=== PATIENT | male | born 1950 | race Caucasian/White ===

== ENCOUNTER 2021-04-24 22:46 | Inpatient (IN) ==
[2021-04-25 00:35] LABS: Bilirubin,Urine Negative (Negative); Blood,Urine Negative (Negative); Clarity,Urine Clear (Clear); Color,Urine Yellow (Yellow); Glucose,Urine (UA) Normal (Normal); Ketones,Urine Negative (Negative); Leukocyte Esterase,Urine Negative (Negative); Nitrite,Urine Negative (Negative); PH,Urine 7.5 pH Units (5.0-8.0); Protein,Urine Trace mg/dL (Neg-Trace); Specific Gravity,Urine 1.019 (1.010-1.025); Urobilinogen,Urine Normal (Normal)
[2021-04-25 00:36] LABS: Hematocrit 39.4 % (37.5-50.1); Hemoglobin 12.7 g/dL (12.9-16.9); Mean Corpuscular HGB Conc 32.2 g/dL (31.6-35.5); Mean Corpuscular Hemoglobin 28.8 pg (28.0-33.3); Mean Corpuscular Volume 89.3 fL (83.0-100.0); Mean Platelet Volume 10.8 fL (9.4-12.4); Platelet Count 126 K/mcL (140-400); Red Blood Count 4.41 M/mcL (4.19-5.50); Red Cell Distribution Width 15.9 % (11.5-14.5); White Blood Count 8.2 K/mcL (4.3-11.1)
[2021-04-25 00:45] LABS: INR 1.4; Prothrombin Time 15.9 Seconds (9.4-12.1)
[2021-04-25 00:48] LABS: Activated Partial Thrombo Time 27.1 Seconds (26.0-36.0)
[2021-04-25 00:57] LABS: Alanine Aminotransferase 21 Units/L (7-52); Albumin 3.1 g/dL (3.5-5.7); Albumin/Globulin Ratio 1.1 (1.1-2.2); Alkaline Phosphatase 362 Units/L (34-104); Aspartate Amino Transferase 65 Units/L (13-39); BUN/Creatinine Ratio 51 (6-26); Bilirubin,Direct 0.4 mg/dL (0.0-0.2); Bilirubin,Indirect 0.5 mg/dL (0.0-1.0); Bilirubin,Total 0.9 mg/dL (0.3-1.0); Blood Urea Nitrogen 22 mg/dL (8-23); Calcium 8.7 mg/dL (8.6-10.3); Carbon Dioxide 32 mEq/L (23-29); Chloride 105 mEq/L (98-107); Globulin 2.8 g/dL (2.4-3.5); Glucose 88 mg/dL (70-105); Osmolality,Calculated 303 (280-300); Potassium 3.8 mEq/L (3.5-5.1); Sodium 145 mEq/L (136-145); Total Protein 5.9 g/dL (6.4-8.9); eGFR For African Americans > 60 (> 60); eGFR For Non-African Americans > 60 (> 60)
[2021-04-25 00:58] LABS: Troponin I < 0.03 ng/mL (< 0.04)
[2021-04-25 01:07] LABS: Neutrophils # 4.6 K/mcL (1.6-8.9); Platelet Estimate Slight Decrease (Normal); Reactive Lymphocytes Present (Not Present)
[2021-04-25] MEDS ORDERED: Isovue-370 500 ML BOTTLE IVP ONE (01:12)
[2021-04-25] MEDS ORDERED: Piperacillin/Tazobactam 3.375 GM in 0.9 % Sodium Chloride Mini Bag 100 ML IVPB ONE (03:00)
[2021-04-25] MEDS ORDERED: Vancomycin 1,750 MG/517.5 ML IV.SOLN IVPB ONE (03:30)
[2021-04-25] MEDS ORDERED: Vancomycin (wt based) 1,000 MG VIAL IVPB SCH (04:00)
[2021-04-25 04:06] LABS: Adenovirus Not Detected (Not Detect); Coronavirus 229E Not Detected (Not Detect); Coronavirus HKU1 Not Detected (Not Detect); Coronavirus NL63 Not Detected (Not Detect); Coronavirus OC43 Not Detected (Not Detect); Human Metapneumovirus Not Detected (Not Detect); Human Rhinovirus/Enterovirus Not Detected (Not Detect); SARS-CoV-2 Not Detected (Not Detect)
[2021-04-25 04:07] LABS: Bordetella Pertussis Not Detected (Not Detect); Chlamydophila pneumoniae Not Detected (Not Detect); Influenza A Subtype 2009 H1 Not Detected (Not Detect); Influenza B Not Detected (Not Detect); Mycoplasma pneumoniae Not Detected (Not Detect); Parainfluenza Virus 1 Not Detected (Not Detect); Parainfluenza Virus 2 Not Detected (Not Detect); Parainfluenza Virus 3 Not Detected (Not Detect); Parainfluenza Virus 4 Not Detected (Not Detect); Respiratory Syncytial Virus Not Detected (Not Detect)
[2021-04-25] MEDS ORDERED: Naloxone 0.4 MG/ML INJ IVP PRN (04:50)
[2021-04-25] MEDS ORDERED: Ondansetron 4 MG/2 ML VIAL IVP PRN (04:50)
[2021-04-25 06:27] LABS: Thyroid Stimulating Hormone 3.906 mcIU/mL (0.340-5.600)
[2021-04-25 06:42] LABS: VBG HCO3 31 mEq/L (21-27); VBG PCO2 42 mmHg (41-51); VBG PH 7.47 pH Units (7.32-7.42); VBG PO2 185 mmHg (25-50)
[2021-04-25] MEDS ORDERED: Ipratropium/Albuterol Neb 3 ML IH PRN (07:54)
[2021-04-25] MEDS ORDERED: 0.9 % Sodium Chloride 500 ML IVC SCH (08:30)
[2021-04-25] MEDS: Piperacillin/Tazobactam 3.375 GM in 0.9 % Sodium Chloride Mini Bag 100 ML IVPB SCH ×2 (11:33→17:49)
[2021-04-25] MEDS ORDERED: *HR* Labetalol 20 MG/4 ML SYRINGE IVP PRN (15:14)
[2021-04-25] MEDS: *HR* Heparin 5,000 UNIT/ML VIAL SQ SCH (15:51)
[2021-04-25] MEDS: Lactulose Oral Soln 20 GM/30 ML UDC PO SCH ×2 (16:12→20:02)
[2021-04-25] MEDS: Vancomycin 1,500 MG/265 ML IV.SOLN IVPB SCH (17:49)
[2021-04-25] MEDS ORDERED: Thiamine (B-1) 100 MG in 0.9 % Sodium Chloride 50 ML IVPB STA (17:51)
[2021-04-25] MEDS ORDERED: traZODone 50 MG TABLET GTUBE SCH (18:00)
[2021-04-25] MEDS: amLODIPine 5 MG TABLET GTUBE SCH (18:50)
[2021-04-25] MEDS: Carbidopa/Levodopa 25/100 TABLET PO SCH (19:59)
[2021-04-25] MEDS: Famotidine 20 MG TABLET PO SCH (20:00)
[2021-04-25] MEDS: hydrALAZINE 25 MG TABLET PO SCH (20:01)
[2021-04-25] MEDS: traZODone 50 MG TABLET GTUBE SCH (20:01)
[2021-04-26] MEDS: Piperacillin/Tazobactam 3.375 GM in 0.9 % Sodium Chloride Mini Bag 100 ML IVPB SCH ×3 (02:12→19:55)
[2021-04-26] MEDS: Vancomycin 1,500 MG/265 ML IV.SOLN IVPB SCH (03:45)
[2021-04-26 04:33] LABS: Basophils # 0.1 K/mcL (0.0-0.2); Basophils % 0.8 %; Eosinophils # 0.1 K/mcL (0.0-0.6); Eosinophils % 1.3 %; Hemoglobin 12.1 g/dL (12.9-16.9); Immature Granulocytes % 6.2 % (0-4); Lymphocytes # 1.7 K/mcL (0.6-4.6); Lymphocytes % 19.7 %; Mean Corpuscular HGB Conc 32.7 g/dL (31.6-35.5); Mean Corpuscular Hemoglobin 29.3 pg (28.0-33.3); Mean Corpuscular Volume 89.6 fL (83.0-100.0); Mean Platelet Volume 10.5 fL (9.4-12.4); Monocytes # 0.9 K/mcL (0.0-1.3); Monocytes % 10.6 %; Neutrophils # 5.3 K/mcL (1.6-8.9); Platelet Count 136 K/mcL (140-400); Red Blood Count 4.13 M/mcL (4.19-5.50); Red Cell Distribution Width 15.8 % (11.5-14.5); Segmented Neutrophils % 61.4 %; White Blood Count 8.7 K/mcL (4.3-11.1)
[2021-04-26 04:39] LABS: INR 1.5; Prothrombin Time 16.8 Seconds (9.4-12.1)
[2021-04-26 04:51] LABS: Alanine Aminotransferase 31 Units/L (7-52); Albumin 2.9 g/dL (3.5-5.7); Albumin/Globulin Ratio 1.1 (1.1-2.2); Alkaline Phosphatase 310 Units/L (34-104); Aspartate Amino Transferase 43 Units/L (13-39); BUN/Creatinine Ratio 42 (6-26); Bilirubin,Direct 0.3 mg/dL (0.0-0.2); Bilirubin,Indirect 0.6 mg/dL (0.0-1.0); Bilirubin,Total 0.9 mg/dL (0.3-1.0); Blood Urea Nitrogen 18 mg/dL (8-23); Calcium 8.6 mg/dL (8.6-10.3); Carbon Dioxide 29 mEq/L (23-29); Chloride 105 mEq/L (98-107); Globulin 2.7 g/dL (2.4-3.5); Glucose 72 mg/dL (70-105); Magnesium 1.8 mg/dL (1.6-2.6); Osmolality,Calculated 292 (280-300); Potassium 3.7 mEq/L (3.5-5.1); Sodium 141 mEq/L (136-145); Total Protein 5.6 g/dL (6.4-8.9); eGFR For African Americans > 60 (> 60); eGFR For Non-African Americans > 60 (> 60)
[2021-04-26 05:01] LABS: Anisocytosis 1+ (Not Present); Platelet Estimate Slight Decrease (Normal)
[2021-04-26] MEDS: *HR* Heparin 5,000 UNIT/ML VIAL SQ SCH ×2 (05:39→16:13)
[2021-04-26] MEDS: lisinopriL 20 MG TABLET PO SCH (07:57)
[2021-04-26] MEDS: allopurinoL 300 MG TABLET PO SCH (07:58)
[2021-04-26] MEDS: hydrALAZINE 25 MG TABLET PO SCH ×3 (07:58→19:57)
[2021-04-26] MEDS: Carbidopa/Levodopa 25/100 TABLET PO SCH ×4 (07:58→19:57)
[2021-04-26] MEDS: amLODIPine 5 MG TABLET GTUBE SCH (07:59)
[2021-04-26] MEDS: Famotidine 20 MG TABLET PO SCH ×2 (07:59→19:58)
[2021-04-26] MEDS: Lactulose Oral Soln 20 GM/30 ML UDC PO SCH ×2 (08:00→19:55)
[2021-04-26] MEDS: Docusate Oral Soln 100 MG/10 ML UDC GTUBE SCH (09:42)
[2021-04-26] MEDS: Thiamine (B-1) 100 MG in 0.9 % Sodium Chloride 50 ML IVPB SCH (10:18)
[2021-04-26] MEDS ORDERED: MOM Conc 10 ML UD.LIQ PO PRN (18:15)
[2021-04-26] MEDS: Valproic Acid Oral Soln 250 MG/5 ML UDC GTUBE SCH (19:54)
[2021-04-26] MEDS: traZODone 50 MG TABLET GTUBE SCH (19:55)
[2021-04-27 01:58] LABS: Basophils # 0.1 K/mcL (0.0-0.2); Basophils % 0.5 %; Eosinophils # 0.2 K/mcL (0.0-0.6); Eosinophils % 1.5 %; Hematocrit 35.8 % (37.5-50.1); Hemoglobin 11.8 g/dL (12.9-16.9); Immature Granulocytes % 4.8 % (0-4); Lymphocytes # 2.4 K/mcL (0.6-4.6); Lymphocytes % 19.2 %; Mean Platelet Volume 9.9 fL (9.4-12.4); Monocytes % 7.7 %; Neutrophils # 8.4 K/mcL (1.6-8.9); Platelet Count 176 K/mcL (140-400); Red Blood Count 4.07 M/mcL (4.19-5.50); Red Cell Distribution Width 15.7 % (11.5-14.5); Segmented Neutrophils % 66.3 %; White Blood Count 12.7 K/mcL (4.3-11.1)
[2021-04-27] MEDS: Piperacillin/Tazobactam 3.375 GM in 0.9 % Sodium Chloride Mini Bag 100 ML IVPB SCH ×3 (02:04→19:45)
[2021-04-27 04:46] LABS: C.difficile Toxin A/B Gene PCR Not detected (Not detect); Campylobacter by PCR Not detected (Not detect); Plesiomonas shigelloides PCR Not detected (Not detect); Salmonella PCR Not detected (Not detect); Vibrio PCR Not detected (Not detect)
[2021-04-27 04:47] LABS: Adenovirus F 40/41 PCR Not detected (Not detect); Astrovirus PCR Not detected (Not detect); Cryptosporidium by PCR Not detected (Not detect); Cyclospora cayetanensis PCR Not detected (Not detect); E. coli O157 by PCR Not detected (Not detect); Entamoeba histolytica PCR Not detected (Not detect); Enteroaggregative E.coli(EAEC) Not detected (Not detect); Enteropathogenic E.coli(EPEC) Not detected (Not detect); Enterotoxigenic E.coli (ETEC) Not detected (Not detect); Giardia lamblia PCR Not detected (Not detect); Norovirus GI/GII PCR Not detected (Not detect); Rotavirus A PCR Not detected (Not detect); Sapovirus PCR Not detected (Not detect); Shig/EnteroinvasiveE coli EIEC Not detected (Not detect); Shigalike tox-prod E coli STEC Not detected (Not detect); Vibrio cholerae PCR Not detected (Not detect); Yersinia enterocolitica PCR Not detected (Not detect)
[2021-04-27] MEDS: *HR* Heparin 5,000 UNIT/ML VIAL SQ SCH ×2 (04:54→17:50)
[2021-04-27 06:45] LABS: BUN/Creatinine Ratio 36 (6-26); Blood Urea Nitrogen 18 mg/dL (8-23); Calcium 8.4 mg/dL (8.6-10.3); Carbon Dioxide 27 mEq/L (23-29); Chloride 107 mEq/L (98-107); Glucose 91 mg/dL (70-105); Osmolality,Calculated 279 (280-300); Potassium 3.6 mEq/L (3.5-5.1); Sodium 134 mEq/L (136-145); eGFR For African Americans > 60 (> 60); eGFR For Non-African Americans > 60 (> 60)
[2021-04-27] MEDS: Docusate Oral Soln 100 MG/10 ML UDC GTUBE SCH (08:13)
[2021-04-27] MEDS: Valproic Acid Oral Soln 250 MG/5 ML UDC GTUBE SCH ×2 (08:13→19:59)
[2021-04-27] MEDS: Lactulose Oral Soln 20 GM/30 ML UDC PO SCH ×2 (08:13→19:47)
[2021-04-27] MEDS: allopurinoL 300 MG TABLET PO SCH (08:14)
[2021-04-27] MEDS: amLODIPine 5 MG TABLET GTUBE SCH (08:14)
[2021-04-27] MEDS: Carbidopa/Levodopa 25/100 TABLET PO SCH ×3 (08:14→17:50)
[2021-04-27] MEDS: hydrALAZINE 25 MG TABLET PO SCH ×3 (08:14→19:46)
[2021-04-27] MEDS: lisinopriL 20 MG TABLET PO SCH (08:14)
[2021-04-27] MEDS: Famotidine 20 MG TABLET PO SCH (08:15)
[2021-04-27] MEDS: Thiamine (B-1) 100 MG in 0.9 % Sodium Chloride 50 ML IVPB SCH (10:13)
[2021-04-27] MEDS: Vancomycin 1,500 MG/265 ML IV.SOLN IVPB SCH (14:03)
[2021-04-27] MEDS: Carbidopa/Levodopa 25/100 TABLET GTUBE SCH (19:46)
[2021-04-27] MEDS: Famotidine 20 MG TABLET GTUBE SCH (19:46)
[2021-04-27] MEDS: traZODone 50 MG TABLET GTUBE SCH (19:47)
[2021-04-27] MEDS: Amantadine Oral Soln 50 MG/5 ML UDC GTUBE SCH (20:56)
[2021-04-27] MEDS: Lactulose Oral Soln 20 GM/30 ML UDC GTUBE SCH (20:56)
[2021-04-27] MEDS: hydrALAZINE 25 MG TABLET GTUBE SCH (20:56)
[2021-04-27] MEDS ORDERED: MOM Conc 10 ML UD.LIQ GTUBE PRN (21:00)
[2021-04-28] MEDS: Vancomycin 1,500 MG/265 ML IV.SOLN IVPB SCH ×2 (01:19→14:15)
[2021-04-28] MEDS: Piperacillin/Tazobactam 3.375 GM in 0.9 % Sodium Chloride Mini Bag 100 ML IVPB SCH ×3 (03:01→18:16)
[2021-04-28] MEDS: *HR* Heparin 5,000 UNIT/ML VIAL SQ SCH ×2 (05:17→18:14)
[2021-04-28 06:41] LABS: Basophils % 0.2 %; Eosinophils # 0.2 K/mcL (0.0-0.6); Eosinophils % 1.5 %; Hematocrit 32.5 % (37.5-50.1); Hemoglobin 11.1 g/dL (12.9-16.9); Lymphocytes # 2.3 K/mcL (0.6-4.6); Lymphocytes % 18.5 %; Mean Corpuscular HGB Conc 34.2 g/dL (31.6-35.5); Mean Corpuscular Hemoglobin 29.9 pg (28.0-33.3); Mean Corpuscular Volume 87.6 fL (83.0-100.0); Mean Platelet Volume 9.6 fL (9.4-12.4); Monocytes # 0.9 K/mcL (0.0-1.3); Monocytes % 6.8 %; Neutrophils # 8.8 K/mcL (1.6-8.9); Platelet Count 157 K/mcL (140-400); Red Blood Count 3.71 M/mcL (4.19-5.50); Red Cell Distribution Width 15.7 % (11.5-14.5); White Blood Count 12.4 K/mcL (4.3-11.1)
[2021-04-28 07:01] LABS: Alanine Aminotransferase 26 Units/L (7-52); Albumin 2.8 g/dL (3.5-5.7); Albumin/Globulin Ratio 1.1 (1.1-2.2); Alkaline Phosphatase 275 Units/L (34-104); Aspartate Amino Transferase 25 Units/L (13-39); BUN/Creatinine Ratio 27 (6-26); Bilirubin,Direct 0.2 mg/dL (0.0-0.2); Bilirubin,Indirect 0.4 mg/dL (0.0-1.0); Bilirubin,Total 0.6 mg/dL (0.3-1.0); Blood Urea Nitrogen 14 mg/dL (8-23); Calcium 8.1 mg/dL (8.6-10.3); Carbon Dioxide 29 mEq/L (23-29); Chloride 102 mEq/L (98-107); Globulin 2.5 g/dL (2.4-3.5); Glucose 84 mg/dL (70-105); Osmolality,Calculated 282 (280-300); Potassium 3.7 mEq/L (3.5-5.1); Sodium 136 mEq/L (136-145); Total Protein 5.3 g/dL (6.4-8.9); eGFR For African Americans > 60 (> 60); eGFR For Non-African Americans > 60 (> 60)
[2021-04-28 08:40] LABS: Acinetobacter baumannii by PCR Not Detected (Not Detect); Candida albicans by PCR Not Detected (Not Detect); Candida glabrata by PCR Not Detected (Not Detect); Candida krusei by PCR Not Detected (Not Detect); Candida parapsilosis by PCR Not Detected (Not Detect); Candida tropicalis by PCR Not Detected (Not Detect); Enterobacter cloacae Cmplx PCR Not Detected (Not Detect); Enterobacteriaceae by PCR Not Detected (Not Detect); Enterococcus by PCR Not Detected (Not Detect); Escherichia coli by PCR Not Detected (Not Detect); Klebsiella oxytoca by PCR Not Detected (Not Detect); Klebsiella pneumoniae by PCR Not Detected (Not Detect); Proteus by PCR Not Detected (Not Detect); Pseudomonas aeruginosa by PCR Not Detected (Not Detect); Serratia marcescens by PCR Not Detected (Not Detect); Staphylococcus aureus by PCR Not Detected (Not Detect); Staphylococcus by PCR DETECTED (Not Detect); Streptococcus agalactiae(B)PCR Not Detected (Not Detect); Streptococcus by PCR Not Detected (Not Detect); Streptococcus pneumoniae PCR Not Detected (Not Detect); Streptococcus pyogenes (A) PCR Not Detected (Not Detect); mecA Methicillin-Resist Gene DETECTED (Not Detect)
[2021-04-28] MEDS: Amantadine Oral Soln 50 MG/5 ML UDC GTUBE SCH ×2 (09:52→20:17)
[2021-04-28] MEDS: Valproic Acid Oral Soln 250 MG/5 ML UDC GTUBE SCH ×2 (09:52→20:14)
[2021-04-28] MEDS: Docusate Oral Soln 100 MG/10 ML UDC GTUBE SCH (09:52)
[2021-04-28] MEDS: lisinopriL 20 MG TABLET GTUBE SCH (09:53)
[2021-04-28] MEDS: amLODIPine 5 MG TABLET GTUBE SCH (09:53)
[2021-04-28] MEDS: Famotidine 20 MG TABLET GTUBE SCH ×2 (09:53→20:19)
[2021-04-28] MEDS: Carbidopa/Levodopa 25/100 TABLET GTUBE SCH ×4 (09:53→20:18)
[2021-04-28] MEDS: hydrALAZINE 25 MG TABLET GTUBE SCH ×3 (09:54→20:18)
[2021-04-28] MEDS: allopurinoL 300 MG TABLET GTUBE SCH (09:55)
[2021-04-28] MEDS: Lactulose Oral Soln 20 GM/30 ML UDC GTUBE SCH ×2 (09:56→20:14)
[2021-04-28] MEDS ORDERED: E-Z-HD (BARIUM SULF) SUSPENSION PO ONE (11:28)
[2021-04-28] MEDS ORDERED: E-Z-PAQUE (BARIUM SULF) SUSP 1 BOTTLE PO ONE (11:28)
[2021-04-28] MEDS: Thiamine (B-1) 100 MG in 0.9 % Sodium Chloride 50 ML IVPB SCH (13:22)
[2021-04-28] MEDS: traZODone 50 MG TABLET GTUBE SCH (20:18)
[2021-04-29] MEDS: Vancomycin 1,500 MG/265 ML IV.SOLN IVPB SCH ×2 (01:03→14:13)
[2021-04-29] MEDS: Piperacillin/Tazobactam 3.375 GM in 0.9 % Sodium Chloride Mini Bag 100 ML IVPB SCH ×3 (02:46→19:06)
[2021-04-29] MEDS: *HR* Heparin 5,000 UNIT/ML VIAL SQ SCH ×2 (04:50→18:07)
[2021-04-29 06:42] LABS: Basophils % 0.1 %; Eosinophils # 0.2 K/mcL (0.0-0.6); Eosinophils % 0.9 %; Hematocrit 32.7 % (37.5-50.1); Hemoglobin 11.2 g/dL (12.9-16.9); Immature Granulocytes % 1.1 % (0-4); Lymphocytes # 1.8 K/mcL (0.6-4.6); Lymphocytes % 10.9 %; Mean Corpuscular HGB Conc 34.3 g/dL (31.6-35.5); Mean Corpuscular Hemoglobin 30.1 pg (28.0-33.3); Mean Corpuscular Volume 87.9 fL (83.0-100.0); Mean Platelet Volume 10.3 fL (9.4-12.4); Monocytes % 5.7 %; Neutrophils # 13.7 K/mcL (1.6-8.9); Platelet Count 174 K/mcL (140-400); Red Blood Count 3.72 M/mcL (4.19-5.50); Red Cell Distribution Width 15.9 % (11.5-14.5); Segmented Neutrophils % 81.3 %; White Blood Count 16.8 K/mcL (4.3-11.1)
[2021-04-29 07:01] LABS: Alanine Aminotransferase 22 Units/L (7-52); Albumin 2.8 g/dL (3.5-5.7); Alkaline Phosphatase 251 Units/L (34-104); Aspartate Amino Transferase 21 Units/L (13-39); BUN/Creatinine Ratio 22 (6-26); Bilirubin,Total 0.6 mg/dL (0.3-1.0); Blood Urea Nitrogen 13 mg/dL (8-23); Calcium 8.2 mg/dL (8.6-10.3); Carbon Dioxide 27 mEq/L (23-29); Chloride 103 mEq/L (98-107); Globulin 2.7 g/dL (2.4-3.5); Glucose 85 mg/dL (70-105); Osmolality,Calculated 281 (280-300); Potassium 3.6 mEq/L (3.5-5.1); Sodium 136 mEq/L (136-145); Total Protein 5.5 g/dL (6.4-8.9); eGFR For African Americans > 60 (> 60); eGFR For Non-African Americans > 60 (> 60)
[2021-04-29] MEDS: Valproic Acid Oral Soln 250 MG/5 ML UDC GTUBE SCH ×2 (09:31→21:37)
[2021-04-29] MEDS: Docusate Oral Soln 100 MG/10 ML UDC GTUBE SCH (09:31)
[2021-04-29] MEDS: lisinopriL 20 MG TABLET GTUBE SCH (09:32)
[2021-04-29] MEDS: hydrALAZINE 25 MG TABLET GTUBE SCH ×3 (09:32→21:38)
[2021-04-29] MEDS: Famotidine 20 MG TABLET GTUBE SCH ×2 (09:33→21:37)
[2021-04-29] MEDS: Carbidopa/Levodopa 25/100 TABLET GTUBE SCH ×4 (09:33→21:38)
[2021-04-29] MEDS: allopurinoL 300 MG TABLET GTUBE SCH (09:34)
[2021-04-29] MEDS: amLODIPine 5 MG TABLET GTUBE SCH (09:34)
[2021-04-29] MEDS: Amantadine Oral Soln 50 MG/5 ML UDC GTUBE SCH ×2 (09:34→21:36)
[2021-04-29] MEDS ORDERED: Furosemide 40 MG/4 ML VIAL IVP ONE (09:38)
[2021-04-29] MEDS: Lactulose Oral Soln 20 GM/30 ML UDC GTUBE SCH ×2 (09:59→21:36)
[2021-04-29] MEDS: Thiamine (B-1) 100 MG in 0.9 % Sodium Chloride 50 ML IVPB SCH (10:10)
[2021-04-29] MEDS: traZODone 50 MG TABLET GTUBE SCH (21:38)
[2021-04-30] MEDS: Vancomycin 1,500 MG/265 ML IV.SOLN IVPB SCH (01:07)
[2021-04-30] MEDS: Piperacillin/Tazobactam 3.375 GM in 0.9 % Sodium Chloride Mini Bag 100 ML IVPB SCH ×3 (03:29→18:14)
[2021-04-30] MEDS: *HR* Heparin 5,000 UNIT/ML VIAL SQ SCH ×2 (04:46→18:16)
[2021-04-30 05:34] LABS: Basophils % 0.2 %; Eosinophils # 0.2 K/mcL (0.0-0.6); Eosinophils % 1.7 %; Hematocrit 31.7 % (37.5-50.1); Hemoglobin 10.9 g/dL (12.9-16.9); Immature Granulocytes % 0.7 % (0-4); Lymphocytes # 1.9 K/mcL (0.6-4.6); Lymphocytes % 16.9 %; Mean Corpuscular HGB Conc 34.4 g/dL (31.6-35.5); Mean Corpuscular Hemoglobin 29.9 pg (28.0-33.3); Mean Corpuscular Volume 87.1 fL (83.0-100.0); Mean Platelet Volume 10.9 fL (9.4-12.4); Monocytes # 0.9 K/mcL (0.0-1.3); Monocytes % 7.9 %; Neutrophils # 8.3 K/mcL (1.6-8.9); Platelet Count 170 K/mcL (140-400); Red Blood Count 3.64 M/mcL (4.19-5.50); Red Cell Distribution Width 16.1 % (11.5-14.5); Segmented Neutrophils % 72.6 %; White Blood Count 11.4 K/mcL (4.3-11.1)
[2021-04-30 05:48] LABS: BUN/Creatinine Ratio 16 (6-26); Blood Urea Nitrogen 14 mg/dL (8-23); Calcium 8.2 mg/dL (8.6-10.3); Carbon Dioxide 27 mEq/L (23-29); Chloride 103 mEq/L (98-107); Glucose 77 mg/dL (70-105); Magnesium 1.8 mg/dL (1.6-2.6); Osmolality,Calculated 287 (280-300); Phosphorous 3.7 mg/dL (2.7-4.5); Potassium 3.6 mEq/L (3.5-5.1); Sodium 139 mEq/L (136-145); eGFR For African Americans > 60 (> 60); eGFR For Non-African Americans > 60 (> 60)
[2021-04-30] MEDS: Amantadine Oral Soln 50 MG/5 ML UDC GTUBE SCH ×2 (08:45→20:47)
[2021-04-30] MEDS: hydrALAZINE 25 MG TABLET GTUBE SCH ×3 (08:45→20:48)
[2021-04-30] MEDS: allopurinoL 300 MG TABLET GTUBE SCH (08:45)
[2021-04-30] MEDS: amLODIPine 5 MG TABLET GTUBE SCH (08:45)
[2021-04-30] MEDS: Carbidopa/Levodopa 25/100 TABLET GTUBE SCH ×4 (08:46→20:49)
[2021-04-30] MEDS: lisinopriL 20 MG TABLET GTUBE SCH (08:46)
[2021-04-30] MEDS: Famotidine 20 MG TABLET GTUBE SCH ×2 (08:47→20:48)
[2021-04-30] MEDS: Lactulose Oral Soln 20 GM/30 ML UDC GTUBE SCH ×2 (08:48→20:47)
[2021-04-30] MEDS: Docusate Oral Soln 100 MG/10 ML UDC GTUBE SCH (08:49)
[2021-04-30] MEDS: Valproic Acid Oral Soln 250 MG/5 ML UDC GTUBE SCH ×2 (08:49→20:47)
[2021-04-30] MEDS: Thiamine (B-1) 100 MG in 0.9 % Sodium Chloride 50 ML IVPB SCH (12:22)
[2021-04-30] MEDS ORDERED: Furosemide 40 MG/4 ML VIAL IVP ONE ×2 (12:57→15:56)
[2021-04-30] MEDS: traZODone 50 MG TABLET GTUBE SCH (20:48)
[2021-05-01 03:17] LABS: Basophils % 0.2 %; Eosinophils # 0.2 K/mcL (0.0-0.6); Hematocrit 31.6 % (37.5-50.1); Hemoglobin 10.8 g/dL (12.9-16.9); Immature Granulocytes % 0.7 % (0-4); Lymphocytes # 1.7 K/mcL (0.6-4.6); Lymphocytes % 17.4 %; Mean Corpuscular HGB Conc 34.2 g/dL (31.6-35.5); Mean Corpuscular Hemoglobin 30.2 pg (28.0-33.3); Mean Corpuscular Volume 88.3 fL (83.0-100.0); Monocytes # 0.8 K/mcL (0.0-1.3); Monocytes % 8.3 %; Platelet Count 189 K/mcL (140-400); Red Blood Count 3.58 M/mcL (4.19-5.50); Red Cell Distribution Width 16.2 % (11.5-14.5); Segmented Neutrophils % 71.4 %; White Blood Count 9.9 K/mcL (4.3-11.1)
[2021-05-01 03:36] LABS: BUN/Creatinine Ratio 13 (6-26); Blood Urea Nitrogen 14 mg/dL (8-23); Calcium 8.3 mg/dL (8.6-10.3); Carbon Dioxide 29 mEq/L (23-29); Chloride 104 mEq/L (98-107); Glucose 119 mg/dL (70-105); Osmolality,Calculated 292 (280-300); Potassium 3.6 mEq/L (3.5-5.1); Sodium 140 mEq/L (136-145); eGFR For African Americans > 60 (> 60); eGFR For Non-African Americans > 60 (> 60)
[2021-05-01] MEDS: *HR* Heparin 5,000 UNIT/ML VIAL SQ SCH ×2 (05:16→16:58)
[2021-05-01] MEDS: Carbidopa/Levodopa 25/100 TABLET GTUBE SCH ×4 (09:22→21:30)
[2021-05-01] MEDS: Docusate Oral Soln 100 MG/10 ML UDC GTUBE SCH (09:22)
[2021-05-01] MEDS: amLODIPine 5 MG TABLET GTUBE SCH (09:22)
[2021-05-01] MEDS: Amantadine Oral Soln 50 MG/5 ML UDC GTUBE SCH ×2 (09:22→21:32)
[2021-05-01] MEDS: hydrALAZINE 25 MG TABLET GTUBE SCH ×3 (09:23→21:31)
[2021-05-01] MEDS: lisinopriL 20 MG TABLET GTUBE SCH (09:23)
[2021-05-01] MEDS: Piperacillin/Tazobactam 3.375 GM in 0.9 % Sodium Chloride Mini Bag 100 ML IVPB SCH ×2 (09:27→12:30)
[2021-05-01] MEDS: Valproic Acid Oral Soln 250 MG/5 ML UDC GTUBE SCH ×2 (09:28→21:28)
[2021-05-01] MEDS: Famotidine 20 MG TABLET GTUBE SCH ×2 (09:32→21:37)
[2021-05-01] MEDS: Lactulose Oral Soln 20 GM/30 ML UDC GTUBE SCH ×2 (09:32→21:31)
[2021-05-01] MEDS: allopurinoL 300 MG TABLET GTUBE SCH (09:32)
[2021-05-01] MEDS: Thiamine (B-1) 100 MG in 0.9 % Sodium Chloride 50 ML IVPB SCH (11:57)
[2021-05-01] MEDS: traZODone 50 MG TABLET GTUBE SCH (21:28)
[2021-05-02] MEDS: *HR* Heparin 5,000 UNIT/ML VIAL SQ SCH ×2 (05:22→17:53)
[2021-05-02] MEDS: Docusate Oral Soln 100 MG/10 ML UDC GTUBE SCH (08:41)
[2021-05-02] MEDS: Lactulose Oral Soln 20 GM/30 ML UDC GTUBE SCH ×2 (08:41→20:19)
[2021-05-02] MEDS: Valproic Acid Oral Soln 250 MG/5 ML UDC GTUBE SCH ×2 (08:41→20:18)
[2021-05-02] MEDS: Amantadine Oral Soln 50 MG/5 ML UDC GTUBE SCH ×2 (08:41→20:19)
[2021-05-02] MEDS: amLODIPine 5 MG TABLET GTUBE SCH (08:42)
[2021-05-02] MEDS: lisinopriL 20 MG TABLET GTUBE SCH (08:43)
[2021-05-02] MEDS: allopurinoL 300 MG TABLET GTUBE SCH (08:43)
[2021-05-02] MEDS: Carbidopa/Levodopa 25/100 TABLET GTUBE SCH ×4 (08:43→20:18)
[2021-05-02] MEDS: Famotidine 20 MG TABLET GTUBE SCH ×2 (08:43→20:19)
[2021-05-02] MEDS: hydrALAZINE 25 MG TABLET GTUBE SCH ×3 (08:43→20:19)
[2021-05-02] MEDS: Thiamine (B-1) 100 MG in 0.9 % Sodium Chloride 50 ML IVPB SCH (08:46)
[2021-05-02] MEDS: traZODone 50 MG TABLET GTUBE SCH (20:18)
[2021-05-03] MEDS: *HR* Heparin 5,000 UNIT/ML VIAL SQ SCH ×2 (05:25→17:48)
[2021-05-03] MEDS: Valproic Acid Oral Soln 250 MG/5 ML UDC GTUBE SCH ×2 (08:07→20:31)
[2021-05-03] MEDS: lisinopriL 20 MG TABLET GTUBE SCH (08:09)
[2021-05-03] MEDS: Docusate Oral Soln 100 MG/10 ML UDC GTUBE SCH (08:09)
[2021-05-03] MEDS: Lactulose Oral Soln 20 GM/30 ML UDC GTUBE SCH ×2 (08:09→20:31)
[2021-05-03] MEDS: Carbidopa/Levodopa 25/100 TABLET GTUBE SCH ×4 (08:09→20:32)
[2021-05-03] MEDS: allopurinoL 300 MG TABLET GTUBE SCH (08:10)
[2021-05-03] MEDS: Famotidine 20 MG TABLET GTUBE SCH ×2 (08:10→20:32)
[2021-05-03] MEDS: hydrALAZINE 25 MG TABLET GTUBE SCH ×3 (08:11→20:32)
[2021-05-03] MEDS: Amantadine Oral Soln 50 MG/5 ML UDC GTUBE SCH ×2 (08:13→20:31)
[2021-05-03] MEDS: amLODIPine 5 MG TABLET GTUBE SCH (08:13)
[2021-05-03] MEDS: Thiamine (B-1) 100 MG in 0.9 % Sodium Chloride 50 ML IVPB SCH (10:20)
[2021-05-03] MEDS: traZODone 50 MG TABLET GTUBE SCH (20:32)
[2021-05-04] MEDS: *HR* Heparin 5,000 UNIT/ML VIAL SQ SCH (05:19)
[2021-05-04] MEDS: Valproic Acid Oral Soln 250 MG/5 ML UDC GTUBE SCH (09:48)
[2021-05-04] MEDS: Amantadine Oral Soln 50 MG/5 ML UDC GTUBE SCH (09:48)
[2021-05-04] MEDS: Carbidopa/Levodopa 25/100 TABLET GTUBE SCH (09:48)
[2021-05-04] MEDS: Lactulose Oral Soln 20 GM/30 ML UDC GTUBE SCH (09:48)
[2021-05-04] MEDS: Docusate Oral Soln 100 MG/10 ML UDC GTUBE SCH (09:48)
[2021-05-04] MEDS: hydrALAZINE 25 MG TABLET GTUBE SCH (09:49)
[2021-05-04] MEDS: Famotidine 20 MG TABLET GTUBE SCH (09:49)
[2021-05-04] MEDS: lisinopriL 20 MG TABLET GTUBE SCH (09:49)
[2021-05-04] MEDS: allopurinoL 300 MG TABLET GTUBE SCH (09:49)
[2021-05-04] MEDS: amLODIPine 5 MG TABLET GTUBE SCH (09:50)
[2021-05-04] MEDS ORDERED: Furosemide 40 MG/4 ML VIAL IVP ONE (09:53)
[2021-05-04] MEDS: Thiamine (B-1) 100 MG in 0.9 % Sodium Chloride 50 ML IVPB SCH (10:26)
[2021-05-04 11:15] VITALS: BP 126/75
[2021-05-04 12:10] LABS: Adenovirus Not Detected (Not Detect); Bordetella Pertussis Not Detected (Not Detect); Chlamydophila pneumoniae Not Detected (Not Detect); Coronavirus 229E Not Detected (Not Detect); Coronavirus HKU1 Not Detected (Not Detect); Coronavirus NL63 Not Detected (Not Detect); Coronavirus OC43 Not Detected (Not Detect); Human Metapneumovirus Not Detected (Not Detect); Human Rhinovirus/Enterovirus Not Detected (Not Detect); Influenza A Subtype 2009 H1 Not Detected (Not Detect); Influenza B Not Detected (Not Detect); Mycoplasma pneumoniae Not Detected (Not Detect); Parainfluenza Virus 1 Not Detected (Not Detect); Parainfluenza Virus 2 Not Detected (Not Detect); Parainfluenza Virus 3 Not Detected (Not Detect); Parainfluenza Virus 4 Not Detected (Not Detect); Respiratory Syncytial Virus Not Detected (Not Detect); SARS-CoV-2 Not Detected (Not Detect)
== END 2021-05-04 12:35 | DRG 177 ==
LOC: EMEROOARM 22:46 → 3BNU 22:46 → SUATTDRO 04-25 04:28 → 3BNU 04-25 05:30 → SUATTDRO 04-27 12:33
PROVIDERS: ADMIT Student in an Organized Health Care Education/Training Program; ATTEND Internal Medicine

== ENCOUNTER 2022-03-27 13:19 | Inpatient (IN) ==
[2022-03-27] MEDS ORDERED: Isovue-370 500 ML BOTTLE IVP ONE (13:28)
[2022-03-27 13:59] LABS: Basophils % 0.2 %; Eosinophils # 0.1 K/mcL (0.0-0.6); Hematocrit 28.8 % (37.5-50.1); Hemoglobin 9.3 g/dL (12.9-16.9); Immature Granulocytes % 1.5 % (0-4); Lymphocytes # 2.4 K/mcL (0.6-4.6); Lymphocytes % 23.2 %; Mean Corpuscular HGB Conc 32.3 g/dL (31.6-35.5); Mean Corpuscular Hemoglobin 30.3 pg (28.0-33.3); Mean Corpuscular Volume 93.8 fL (83.0-100.0); Mean Platelet Volume 9.8 fL (9.4-12.4); Monocytes # 0.5 K/mcL (0.0-1.3); Monocytes % 5.1 %; Neutrophils # 7.1 K/mcL (1.6-8.9); Platelet Count 159 K/mcL (140-400); Red Blood Count 3.07 M/mcL (4.19-5.50); Red Cell Distribution Width 15.8 % (11.5-14.5); White Blood Count 10.3 K/mcL (4.3-11.1)
[2022-03-27 14:20] LABS: Bilirubin,Urine Negative (Negative); Blood,Urine Small (Negative); Clarity,Urine Ex.Turbid (Clear); Color,Urine Yellow (Yellow); Glucose,Urine (UA) Normal (Normal); Ketones,Urine Trace mg/dL (Negative); Leukocyte Esterase,Urine Large (Negative); Nitrite,Urine Negative (Negative); Protein,Urine 50 mg/dL (Neg-Trace); Specific Gravity,Urine 1.018 (1.010-1.025); Urobilinogen,Urine Normal (Normal)
[2022-03-27 14:23] LABS: BUN/Creatinine Ratio 24 (6-26); Blood Urea Nitrogen 21 mg/dL (8-23); Calcium 8.8 mg/dL (8.6-10.3); Carbon Dioxide 30 mEq/L (23-29); Chloride 112 mEq/L (98-107); Glucose 77 mg/dL (70-105); Osmolality,Calculated 306 (280-300); Potassium 4.5 mEq/L (3.5-5.1); Sodium 147 mEq/L (136-145); eGFR For African Americans > 60 (> 60); eGFR For Non-African Americans > 60 (> 60)
[2022-03-27 14:31] LABS: WBC,Urine TNTC per hpf (0-3)
[2022-03-27 14:32] LABS: RBC,Urine Present per hpf (0-3); Squamous Epithelial Cell,Urine Few per hpf (None-Few)
[2022-03-27 14:33] LABS: Troponin I 0.05 ng/mL (< 0.04)
[2022-03-27 14:33] LABS: Bacteria,Urine Present per hpf (None-Few)
[2022-03-27] MEDS ORDERED: cefTRIAXone 1,000 MG in 0.9 % Sodium Chloride 10 ML IVP ONE (14:35)
[2022-03-27] MEDS ORDERED: Azithromycin 500 MG in 0.9 % Sodium Chloride 250 ML IVPB ONE (15:05)
[2022-03-27] MEDS ORDERED: Naloxone 0.4 MG/ML INJ IVP PRN (15:38)
[2022-03-27] MEDS ORDERED: Acetaminophen 325 MG TABLET PO PRN (15:38)
[2022-03-27] MEDS ORDERED: Ondansetron 4 MG/2 ML VIAL IVP PRN (15:38)
[2022-03-27] MEDS: Ipratropium/Albuterol Neb 3 ML IH SCH ×2 (16:00→22:46)
[2022-03-27] MEDS ORDERED: Nitroglycerin 0.4 MG TAB.SUBL SL PRN (16:06)
[2022-03-27 16:15] LABS: Influenza A PCR Negative (Negative); Influenza B PCR Negative (Negative); Resp. Syncytial Virus PCR Negative (Negative)
[2022-03-27 16:16] LABS: SARS-CoV-2 by PCR (In House) Negative (Negative)
[2022-03-27] MEDS: Vancomycin 1,250 MG/262.5 ML IV.SOLN IVPB SCH (17:44)
[2022-03-27] MEDS: *HR* Heparin 5,000 UNIT/ML VIAL SQ SCH (21:04)
[2022-03-28] MEDS: Piperacillin/Tazobactam 3.375 GM in 0.9 % Sodium Chloride Mini Bag 100 ML IVPB SCH ×4 (00:03→23:45)
[2022-03-28 03:13] LABS: Basophils % 0.3 %; Eosinophils # 0.2 K/mcL (0.0-0.6); Eosinophils % 1.3 %; Hematocrit 29.2 % (37.5-50.1); Hemoglobin 9.6 g/dL (12.9-16.9); Immature Granulocytes % 1.6 % (0-4); Lymphocytes # 1.9 K/mcL (0.6-4.6); Lymphocytes % 15.6 %; Mean Corpuscular HGB Conc 32.9 g/dL (31.6-35.5); Mean Corpuscular Hemoglobin 30.5 pg (28.0-33.3); Mean Corpuscular Volume 92.7 fL (83.0-100.0); Mean Platelet Volume 9.7 fL (9.4-12.4); Monocytes # 0.5 K/mcL (0.0-1.3); Monocytes % 4.3 %; Neutrophils # 9.4 K/mcL (1.6-8.9); Platelet Count 182 K/mcL (140-400); Red Blood Count 3.15 M/mcL (4.19-5.50); Red Cell Distribution Width 15.9 % (11.5-14.5); Segmented Neutrophils % 76.9 %; White Blood Count 12.3 K/mcL (4.3-11.1)
[2022-03-28 03:37] LABS: BUN/Creatinine Ratio 24 (6-26); Blood Urea Nitrogen 20 mg/dL (8-23); Calcium 8.9 mg/dL (8.6-10.3); Carbon Dioxide 29 mEq/L (23-29); Chloride 111 mEq/L (98-107); Glucose 83 mg/dL (70-105); Osmolality,Calculated 306 (280-300); Potassium 4.4 mEq/L (3.5-5.1); Sodium 147 mEq/L (136-145); Troponin I 0.06 ng/mL (< 0.04); eGFR For African Americans > 60 (> 60); eGFR For Non-African Americans > 60 (> 60)
[2022-03-28] MEDS: Ipratropium/Albuterol Neb 3 ML IH SCH ×4 (04:08→22:01)
[2022-03-28] MEDS: *HR* Heparin 5,000 UNIT/ML VIAL SQ SCH ×3 (05:51→22:45)
[2022-03-28] MEDS: Vancomycin 1,250 MG/262.5 ML IV.SOLN IVPB SCH ×2 (05:51→17:44)
[2022-03-28] MEDS ORDERED: Perflutren Lipid Microsphere 1.3 ML in 0.9 % Sodium Chloride 8.7 ML IVP PRN (07:06)
[2022-03-28] MEDS ORDERED: D5% in Water 1,000 ML IVC PRN (07:44)
[2022-03-28] MEDS ORDERED: *HR* Dextrose 50 % in Water (Syg) 50 ML SYRINGE IVP PRN (07:44)
[2022-03-28] MEDS ORDERED: Dextrose Gel 15 GM/37.5 ML TUBE PO PRN ×2 (07:44)
[2022-03-28] MEDS ORDERED: Aspirin 81 MG TAB.CHEW PO SCH (09:00)
[2022-03-28] MEDS ORDERED: Lidocaine 5% OINT 35 APPL/35.44 GM TUBE TP PRN (14:24)
[2022-03-28] MEDS ORDERED: GuaiFENesin Liq 200 MG/10 ML UDC PO PRN (14:24)
[2022-03-28] MEDS ORDERED: Ondansetron ODT 4 MG TAB.RAPDIS GTUBE PRN (14:24)
[2022-03-28] MEDS ORDERED: MOM Conc 10 ML UD.LIQ GTUBE PRN (14:24)
[2022-03-28] MEDS: Carbidopa/Levodopa 25/100 TABLET GTUBE SCH ×2 (15:57→22:39)
[2022-03-28] MEDS: traZODone 50 MG TABLET GTUBE SCH (22:38)
[2022-03-28] MEDS: Famotidine 20 MG TABLET GTUBE SCH (22:42)
[2022-03-28] MEDS: hydrALAZINE 25 MG TABLET GTUBE SCH (22:43)
[2022-03-28] MEDS: Lactulose Oral Soln 20 GM/30 ML UDC GTUBE SCH (22:44)
[2022-03-28] MEDS: Valproic Acid Oral Soln 250 MG/5 ML UDC GTUBE SCH (22:45)
[2022-03-28] MEDS: Methyl Salicylate/Menthol 85 APPL/85 GM TUBE TP SCH (22:48)
[2022-03-29] MEDS: Ipratropium/Albuterol Neb 3 ML IH SCH ×4 (03:58→22:11)
[2022-03-29] MEDS: Vancomycin 1,250 MG/262.5 ML IV.SOLN IVPB SCH ×2 (06:21→16:44)
[2022-03-29] MEDS: *HR* Heparin 5,000 UNIT/ML VIAL SQ SCH ×3 (06:21→21:33)
[2022-03-29] MEDS ORDERED: GuaiFENesin Liq 200 MG/10 ML UDC GTUBE PRN (09:00)
[2022-03-29] MEDS: Doxycycline 100 MG in 0.9 % Sodium Chloride Mini Bag 100 ML IVPB SCH ×2 (10:40→21:34)
[2022-03-29] MEDS: Carbidopa/Levodopa 25/100 TABLET GTUBE SCH ×4 (10:44→21:31)
[2022-03-29] MEDS: Valproic Acid Oral Soln 250 MG/5 ML UDC GTUBE SCH ×2 (10:44→21:38)
[2022-03-29] MEDS: Lactulose Oral Soln 20 GM/30 ML UDC GTUBE SCH ×2 (10:44→21:35)
[2022-03-29] MEDS: allopurinoL 300 MG TABLET GTUBE SCH (10:44)
[2022-03-29] MEDS: Famotidine 20 MG TABLET GTUBE SCH ×2 (10:44→21:33)
[2022-03-29] MEDS: Aspirin 81 MG TAB.CHEW GTUBE SCH (10:44)
[2022-03-29] MEDS: Methyl Salicylate/Menthol 85 APPL/85 GM TUBE TP SCH ×2 (10:45→21:34)
[2022-03-29] MEDS: hydrALAZINE 25 MG TABLET GTUBE SCH ×2 (10:45→21:32)
[2022-03-29] MEDS: Piperacillin/Tazobactam 3.375 GM in 0.9 % Sodium Chloride Mini Bag 100 ML IVPB SCH ×2 (11:11→16:43)
[2022-03-29 13:47] LABS: Basophils % 0.1 %; Eosinophils # 0.2 K/mcL (0.0-0.6); Eosinophils % 1.2 %; Hematocrit 28.5 % (37.5-50.1); Hemoglobin 9.1 g/dL (12.9-16.9); Immature Granulocytes % 0.4 % (0-4); Lymphocytes # 2.1 K/mcL (0.6-4.6); Lymphocytes % 14.1 %; Mean Corpuscular HGB Conc 31.9 g/dL (31.6-35.5); Mean Corpuscular Hemoglobin 29.7 pg (28.0-33.3); Mean Corpuscular Volume 93.1 fL (83.0-100.0); Mean Platelet Volume 9.6 fL (9.4-12.4); Monocytes # 0.6 K/mcL (0.0-1.3); Monocytes % 4.3 %; Neutrophils # 11.6 K/mcL (1.6-8.9); Platelet Count 216 K/mcL (140-400); Red Blood Count 3.06 M/mcL (4.19-5.50); Red Cell Distribution Width 16.2 % (11.5-14.5); Segmented Neutrophils % 79.9 %; White Blood Count 14.5 K/mcL (4.3-11.1)
[2022-03-29 14:04] LABS: BUN/Creatinine Ratio 29 (6-26); Blood Urea Nitrogen 22 mg/dL (8-23); Calcium 8.8 mg/dL (8.6-10.3); Carbon Dioxide 29 mEq/L (23-29); Chloride 113 mEq/L (98-107); Glucose 156 mg/dL (70-105); Osmolality,Calculated 313 (280-300); Sodium 148 mEq/L (136-145); eGFR For African Americans > 60 (> 60); eGFR For Non-African Americans > 60 (> 60)
[2022-03-29] MEDS: traZODone 50 MG TABLET GTUBE SCH (21:30)
[2022-03-30] MEDS: Piperacillin/Tazobactam 3.375 GM in 0.9 % Sodium Chloride Mini Bag 100 ML IVPB SCH ×2 (00:18→09:28)
[2022-03-30] MEDS: Ipratropium/Albuterol Neb 3 ML IH SCH ×4 (04:16→22:34)
[2022-03-30 04:48] LABS: Basophils % 0.1 %; Eosinophils # 0.3 K/mcL (0.0-0.6); Eosinophils % 2.6 %; Hematocrit 28.8 % (37.5-50.1); Hemoglobin 9.1 g/dL (12.9-16.9); Immature Granulocytes % 0.5 % (0-4); Lymphocytes % 20.1 %; Mean Corpuscular HGB Conc 31.6 g/dL (31.6-35.5); Mean Corpuscular Hemoglobin 29.8 pg (28.0-33.3); Mean Corpuscular Volume 94.4 fL (83.0-100.0); Mean Platelet Volume 9.9 fL (9.4-12.4); Monocytes # 0.6 K/mcL (0.0-1.3); Monocytes % 5.6 %; Neutrophils # 7.1 K/mcL (1.6-8.9); Platelet Count 210 K/mcL (140-400); Red Blood Count 3.05 M/mcL (4.19-5.50); Red Cell Distribution Width 16.3 % (11.5-14.5); Segmented Neutrophils % 71.1 %
[2022-03-30 04:58] LABS: BUN/Creatinine Ratio 26 (6-26); Blood Urea Nitrogen 20 mg/dL (8-23); Calcium 8.6 mg/dL (8.6-10.3); Carbon Dioxide 28 mEq/L (23-29); Chloride 112 mEq/L (98-107); Glucose 118 mg/dL (70-105); Osmolality,Calculated 310 (280-300); Potassium 4.1 mEq/L (3.5-5.1); Sodium 148 mEq/L (136-145); eGFR For African Americans > 60 (> 60); eGFR For Non-African Americans > 60 (> 60)
[2022-03-30] MEDS: *HR* Heparin 5,000 UNIT/ML VIAL SQ SCH ×2 (05:48→13:18)
[2022-03-30] MEDS: Vancomycin 1,250 MG/262.5 ML IV.SOLN IVPB SCH (05:49)
[2022-03-30] MEDS: Doxycycline 100 MG in 0.9 % Sodium Chloride Mini Bag 100 ML IVPB SCH (09:28)
[2022-03-30] MEDS: Valproic Acid Oral Soln 250 MG/5 ML UDC GTUBE SCH ×2 (09:31→19:56)
[2022-03-30] MEDS: Lactulose Oral Soln 20 GM/30 ML UDC GTUBE SCH ×2 (09:31→19:57)
[2022-03-30] MEDS: allopurinoL 300 MG TABLET GTUBE SCH (09:31)
[2022-03-30] MEDS: Carbidopa/Levodopa 25/100 TABLET GTUBE SCH ×4 (09:31→19:57)
[2022-03-30] MEDS: Finasteride 5 MG TABLET PO SCH (09:32)
[2022-03-30] MEDS: Famotidine 20 MG TABLET GTUBE SCH ×2 (09:32→19:57)
[2022-03-30] MEDS: Aspirin 81 MG TAB.CHEW GTUBE SCH (09:33)
[2022-03-30] MEDS: Methyl Salicylate/Menthol 85 APPL/85 GM TUBE TP SCH ×2 (09:33→19:59)
[2022-03-30] MEDS: hydrALAZINE 25 MG TABLET GTUBE SCH ×2 (09:33→19:59)
[2022-03-30] MEDS: Cefepime HCl 2,000 MG in 0.9 % Sodium Chloride 10 ML IVP SCH (17:02)
[2022-03-30] MEDS: traZODone 50 MG TABLET GTUBE SCH (19:57)
[2022-03-31] MEDS: Doxycycline 100 MG in 0.9 % Sodium Chloride Mini Bag 100 ML IVPB SCH ×3 (00:14→20:37)
[2022-03-31] MEDS: *HR* Heparin 5,000 UNIT/ML VIAL SQ SCH ×4 (00:15→20:36)
[2022-03-31] MEDS: Cefepime HCl 2,000 MG in 0.9 % Sodium Chloride 10 ML IVP SCH ×3 (03:07→17:20)
[2022-03-31] MEDS: Ipratropium/Albuterol Neb 3 ML IH SCH ×4 (03:49→21:38)
[2022-03-31 07:35] LABS: Basophils % 0.2 %; Eosinophils # 0.3 K/mcL (0.0-0.6); Eosinophils % 2.8 %; Hematocrit 31.1 % (37.5-50.1); Hemoglobin 9.8 g/dL (12.9-16.9); Immature Granulocytes % 0.3 % (0-4); Lymphocytes # 1.6 K/mcL (0.6-4.6); Lymphocytes % 17.1 %; Mean Corpuscular HGB Conc 31.5 g/dL (31.6-35.5); Mean Corpuscular Hemoglobin 29.8 pg (28.0-33.3); Mean Corpuscular Volume 94.5 fL (83.0-100.0); Mean Platelet Volume 10.2 fL (9.4-12.4); Monocytes # 0.5 K/mcL (0.0-1.3); Monocytes % 5.1 %; Neutrophils # 7.1 K/mcL (1.6-8.9); Platelet Count 212 K/mcL (140-400); Red Blood Count 3.29 M/mcL (4.19-5.50); Red Cell Distribution Width 16.4 % (11.5-14.5); Segmented Neutrophils % 74.5 %; White Blood Count 9.6 K/mcL (4.3-11.1)
[2022-03-31 07:44] LABS: BUN/Creatinine Ratio 30 (6-26); Blood Urea Nitrogen 20 mg/dL (8-23); Carbon Dioxide 29 mEq/L (23-29); Chloride 113 mEq/L (98-107); Glucose 115 mg/dL (70-105); Osmolality,Calculated 310 (280-300); Potassium 4.3 mEq/L (3.5-5.1); Sodium 148 mEq/L (136-145); eGFR For African Americans > 60 (> 60); eGFR For Non-African Americans > 60 (> 60)
[2022-03-31] MEDS: Valproic Acid Oral Soln 250 MG/5 ML UDC GTUBE SCH ×2 (08:55→20:35)
[2022-03-31] MEDS: Lactulose Oral Soln 20 GM/30 ML UDC GTUBE SCH ×2 (08:55→20:35)
[2022-03-31] MEDS: Aspirin 81 MG TAB.CHEW GTUBE SCH (08:58)
[2022-03-31] MEDS: Carbidopa/Levodopa 25/100 TABLET GTUBE SCH ×4 (08:59→20:35)
[2022-03-31] MEDS: Finasteride 5 MG TABLET PO SCH (08:59)
[2022-03-31] MEDS ORDERED: Amantadine Oral Soln 50 MG/5 ML UDC GTUBE SCH (09:00)
[2022-03-31] MEDS: hydrALAZINE 25 MG TABLET GTUBE SCH ×2 (09:00→20:34)
[2022-03-31] MEDS: Famotidine 20 MG TABLET GTUBE SCH ×2 (09:00→20:35)
[2022-03-31] MEDS: allopurinoL 300 MG TABLET GTUBE SCH (09:01)
[2022-03-31 19:41] LABS: Adenovirus Not Detected (Not Detect); Bordetella Pertussis Not Detected (Not Detect); Chlamydophila pneumoniae Not Detected (Not Detect); Coronavirus 229E Not Detected (Not Detect); Coronavirus HKU1 Not Detected (Not Detect); Coronavirus NL63 Not Detected (Not Detect); Coronavirus OC43 Not Detected (Not Detect); Human Metapneumovirus Not Detected (Not Detect); Human Rhinovirus/Enterovirus DETECTED (Not Detect); Influenza A Subtype 2009 H1 Not Detected (Not Detect); Influenza B Not Detected (Not Detect); Mycoplasma pneumoniae Not Detected (Not Detect); Parainfluenza Virus 1 Not Detected (Not Detect); Parainfluenza Virus 2 Not Detected (Not Detect); Parainfluenza Virus 3 Not Detected (Not Detect); Parainfluenza Virus 4 Not Detected (Not Detect); Respiratory Syncytial Virus Not Detected (Not Detect); SARS-CoV-2 Not Detected (Not Detect)
[2022-03-31] MEDS: Methyl Salicylate/Menthol 85 APPL/85 GM TUBE TP SCH ×2 (20:33→20:36)
[2022-03-31] MEDS: traZODone 50 MG TABLET GTUBE SCH (20:35)
[2022-03-31] MEDS: Amantadine Oral Soln 50 MG/5 ML UDC GTUBE SCH (20:36)
[2022-04-01 01:18] LABS: Basophils % 0.1 %; Eosinophils # 0.3 K/mcL (0.0-0.6); Hematocrit 28.6 % (37.5-50.1); Hemoglobin 9.1 g/dL (12.9-16.9); Immature Granulocytes % 0.4 % (0-4); Lymphocytes # 2.1 K/mcL (0.6-4.6); Mean Corpuscular HGB Conc 31.8 g/dL (31.6-35.5); Mean Corpuscular Hemoglobin 29.8 pg (28.0-33.3); Mean Corpuscular Volume 93.8 fL (83.0-100.0); Mean Platelet Volume 10.1 fL (9.4-12.4); Monocytes # 0.6 K/mcL (0.0-1.3); Neutrophils # 6.4 K/mcL (1.6-8.9); Platelet Count 213 K/mcL (140-400); Red Blood Count 3.05 M/mcL (4.19-5.50); Red Cell Distribution Width 16.7 % (11.5-14.5); Segmented Neutrophils % 68.5 %; White Blood Count 9.4 K/mcL (4.3-11.1)
[2022-04-01 01:36] LABS: BUN/Creatinine Ratio 29 (6-26); Blood Urea Nitrogen 20 mg/dL (8-23); Calcium 8.7 mg/dL (8.6-10.3); Carbon Dioxide 30 mEq/L (23-29); Chloride 112 mEq/L (98-107); Glucose 123 mg/dL (70-105); Osmolality,Calculated 308 (280-300); Potassium 4.2 mEq/L (3.5-5.1); Sodium 147 mEq/L (136-145); eGFR For African Americans > 60 (> 60); eGFR For Non-African Americans > 60 (> 60)
[2022-04-01] MEDS: Cefepime HCl 2,000 MG in 0.9 % Sodium Chloride 10 ML IVP SCH ×2 (02:41→11:33)
[2022-04-01] MEDS: Ipratropium/Albuterol Neb 3 ML IH SCH ×2 (03:28→07:22)
[2022-04-01 06:53] VITALS: BP 145/68; PULSE 75; TEMP 98.7
[2022-04-01 07:24] VITALS: O2SAT 100
[2022-04-01] MEDS: Doxycycline 100 MG in 0.9 % Sodium Chloride Mini Bag 100 ML IVPB SCH (07:45)
[2022-04-01] MEDS: Lactulose Oral Soln 20 GM/30 ML UDC GTUBE SCH (07:46)
[2022-04-01] MEDS: Finasteride 5 MG TABLET PO SCH (07:46)
[2022-04-01] MEDS: Carbidopa/Levodopa 25/100 TABLET GTUBE SCH (07:46)
[2022-04-01] MEDS: hydrALAZINE 25 MG TABLET GTUBE SCH (07:47)
[2022-04-01] MEDS: allopurinoL 300 MG TABLET GTUBE SCH (07:47)
[2022-04-01] MEDS: Aspirin 81 MG TAB.CHEW GTUBE SCH (07:47)
[2022-04-01] MEDS: Famotidine 20 MG TABLET GTUBE SCH (07:48)
[2022-04-01] MEDS: Amantadine Oral Soln 50 MG/5 ML UDC GTUBE SCH (07:48)
[2022-04-01] MEDS: Valproic Acid Oral Soln 250 MG/5 ML UDC GTUBE SCH (07:48)
[2022-04-01] MEDS ORDERED: Finasteride 5 MG TABLET PO SCH (09:27)
[2022-04-01] MEDS: Methyl Salicylate/Menthol 85 APPL/85 GM TUBE TP SCH (11:31)
[2022-04-01] MEDS: *HR* Heparin 5,000 UNIT/ML VIAL SQ SCH (11:32)
== END 2022-04-01 11:30 | DRG 193 ==
LOC: EMEROOARM 13:19 → 2ANU 13:19 → SUATTDRO 15:48 → 2ANU 16:25
PROVIDERS: ADMIT Internal Medicine; ATTEND General Practice

== ENCOUNTER 2022-04-01 18:00 | Inpatient (IN) ==
[2022-04-01 23:28] LABS: Basophils % 0.3 %; Eosinophils # 0.2 K/mcL (0.0-0.6); Eosinophils % 2.3 %; Hematocrit 30.9 % (37.5-50.1); Hemoglobin 10.1 g/dL (12.9-16.9); Immature Granulocytes % 0.3 % (0-4); Lymphocytes # 1.6 K/mcL (0.6-4.6); Lymphocytes % 17.6 %; Mean Corpuscular HGB Conc 32.7 g/dL (31.6-35.5); Mean Corpuscular Hemoglobin 30.1 pg (28.0-33.3); Mean Corpuscular Volume 92.2 fL (83.0-100.0); Mean Platelet Volume 9.8 fL (9.4-12.4); Monocytes # 0.5 K/mcL (0.0-1.3); Monocytes % 5.5 %; Neutrophils # 6.8 K/mcL (1.6-8.9); Platelet Count 240 K/mcL (140-400); Red Blood Count 3.35 M/mcL (4.19-5.50); Red Cell Distribution Width 16.7 % (11.5-14.5); White Blood Count 9.2 K/mcL (4.3-11.1)
[2022-04-01] MEDS: Ketorolac 30 MG/ML VIAL IVP SCH (23:47)
[2022-04-01 23:50] LABS: BUN/Creatinine Ratio 26 (6-26); Blood Urea Nitrogen 18 mg/dL (8-23); Calcium 9.2 mg/dL (8.6-10.3); Carbon Dioxide 30 mEq/L (23-29); Chloride 108 mEq/L (98-107); Glucose 86 mg/dL (70-105); Osmolality,Calculated 299 (280-300); Potassium 4.3 mEq/L (3.5-5.1); Sodium 144 mEq/L (136-145); eGFR For African Americans > 60 (> 60); eGFR For Non-African Americans > 60 (> 60)
[2022-04-02] MEDS ORDERED: Ondansetron 4 MG/2 ML VIAL IVP PRN (00:48)
[2022-04-02] MEDS ORDERED: Naloxone 0.4 MG/ML INJ IVP PRN (00:48)
[2022-04-02 01:56] LABS: Basophils % 0.3 %; Eosinophils # 0.1 K/mcL (0.0-0.6); Eosinophils % 1.4 %; Hematocrit 30.5 % (37.5-50.1); Hemoglobin 9.7 g/dL (12.9-16.9); Immature Granulocytes % 0.3 % (0-4); Lymphocytes # 1.5 K/mcL (0.6-4.6); Lymphocytes % 17.3 %; Mean Corpuscular HGB Conc 31.8 g/dL (31.6-35.5); Mean Corpuscular Hemoglobin 29.8 pg (28.0-33.3); Mean Corpuscular Volume 93.8 fL (83.0-100.0); Mean Platelet Volume 10.3 fL (9.4-12.4); Monocytes # 0.6 K/mcL (0.0-1.3); Monocytes % 6.5 %; Neutrophils # 6.5 K/mcL (1.6-8.9); Platelet Count 237 K/mcL (140-400); Red Blood Count 3.25 M/mcL (4.19-5.50); Red Cell Distribution Width 16.8 % (11.5-14.5); Segmented Neutrophils % 74.2 %; White Blood Count 8.8 K/mcL (4.3-11.1)
[2022-04-02 02:34] LABS: Alanine Aminotransferase 44 Units/L (7-52); Albumin 2.8 g/dL (3.5-5.7); Albumin/Globulin Ratio 0.8 (1.1-2.2); Alkaline Phosphatase 106 Units/L (34-104); Aspartate Amino Transferase 33 Units/L (13-39); BUN/Creatinine Ratio 26 (6-26); Bilirubin,Total 0.4 mg/dL (0.3-1.0); Blood Urea Nitrogen 18 mg/dL (8-23); Calcium 9.2 mg/dL (8.6-10.3); Carbon Dioxide 30 mEq/L (23-29); Chloride 109 mEq/L (98-107); Globulin 3.7 g/dL (2.4-3.5); Glucose 86 mg/dL (70-105); Magnesium 1.9 mg/dL (1.6-2.6); Osmolality,Calculated 301 (280-300); Phosphorous 2.6 mg/dL (2.7-4.5); Potassium 4.3 mEq/L (3.5-5.1); Sodium 145 mEq/L (136-145); Total Protein 6.5 g/dL (6.4-8.9); Troponin I 0.05 ng/mL (< 0.04); eGFR For African Americans > 60 (> 60); eGFR For Non-African Americans > 60 (> 60)
[2022-04-02] MEDS ORDERED: 0.9 % Sodium Chloride 1,000 ML IVC SCH (03:30)
[2022-04-02] MEDS ORDERED: Vancomycin 1,750 MG/517.5 ML IV.SOLN IVPB ONE (04:00)
[2022-04-02] MEDS: *HR* Heparin 5,000 UNIT/ML VIAL SQ SCH ×2 (05:18→18:49)
[2022-04-02] MEDS: Ketorolac 30 MG/ML VIAL IVP SCH (05:18)
[2022-04-02] MEDS: Piperacillin/Tazobactam 3.375 GM in 0.9 % Sodium Chloride Mini Bag 100 ML IVPB SCH ×3 (08:38→23:15)
[2022-04-02] MEDS ORDERED: levoFLOXacin 750 MG/150 ML 750 MG/150 ML BAG IVPB SCH (09:00)
[2022-04-02] MEDS: Ipratropium/Albuterol Neb 3 ML IH SCH ×3 (10:46→20:30)
[2022-04-02] MEDS ORDERED: Albuterol 2.5 MG/3 ML NEBULIZER IH PRN (13:27)
[2022-04-02] MEDS ORDERED: MOM Conc 10 ML UD.LIQ GTUBE PRN (13:31)
[2022-04-02] MEDS ORDERED: Ipratropium/Albuterol Neb 3 ML IH SCH (13:45)
[2022-04-02] MEDS ORDERED: (Miconazole Nitrate [Desenex] 43 GM Powder) TP PRN (14:07)
[2022-04-02] MEDS ORDERED: Vancomycin 1,500 MG/265 ML IV.SOLN IVPB SCH (17:00)
[2022-04-02] MEDS: Carbidopa/Levodopa 25/100 TABLET GTUBE SCH ×2 (18:49→21:04)
[2022-04-02] MEDS: Lactulose Oral Soln 20 GM/30 ML UDC GTUBE SCH (20:58)
[2022-04-02] MEDS: Valproic Acid Oral Soln 250 MG/5 ML UDC GTUBE SCH (20:58)
[2022-04-02] MEDS: Amantadine Oral Soln 50 MG/5 ML UDC GTUBE SCH (20:59)
[2022-04-02] MEDS: traZODone 50 MG TABLET GTUBE SCH (20:59)
[2022-04-02] MEDS: Famotidine 20 MG TABLET GTUBE SCH (20:59)
[2022-04-02] MEDS: hydrALAZINE 25 MG TABLET GTUBE SCH (21:00)
[2022-04-02] MEDS: Artificial Tears SOLN 15 ML BOTTLE BOTH EYES SCH (21:04)
[2022-04-03] MEDS: Ipratropium/Albuterol Neb 3 ML IH SCH ×4 (04:01→19:49)
[2022-04-03] MEDS: *HR* Heparin 5,000 UNIT/ML VIAL SQ SCH ×2 (05:24→16:56)
[2022-04-03] MEDS ORDERED: GuaiFENesin Liq 200 MG/10 ML UDC PO PRN (07:12)
[2022-04-03] MEDS: Valproic Acid Oral Soln 250 MG/5 ML UDC GTUBE SCH ×2 (08:09→20:46)
[2022-04-03] MEDS: Lactulose Oral Soln 20 GM/30 ML UDC GTUBE SCH ×2 (08:09→20:47)
[2022-04-03] MEDS: Piperacillin/Tazobactam 3.375 GM in 0.9 % Sodium Chloride Mini Bag 100 ML IVPB SCH ×3 (08:10→23:07)
[2022-04-03] MEDS: Amantadine Oral Soln 50 MG/5 ML UDC GTUBE SCH ×2 (08:13→20:48)
[2022-04-03] MEDS: hydrALAZINE 25 MG TABLET GTUBE SCH ×2 (08:13→20:47)
[2022-04-03] MEDS: Zinc Sulfate 220 MG CAPSULE GTUBE SCH (08:13)
[2022-04-03] MEDS: Artificial Tears SOLN 15 ML BOTTLE BOTH EYES SCH ×3 (08:14→20:50)
[2022-04-03] MEDS: Famotidine 20 MG TABLET GTUBE SCH ×2 (08:14→20:48)
[2022-04-03] MEDS: Carbidopa/Levodopa 25/100 TABLET GTUBE SCH ×4 (08:14→20:48)
[2022-04-03] MEDS: lisinopriL 20 MG TABLET GTUBE SCH (08:14)
[2022-04-03] MEDS: allopurinoL 300 MG TABLET GTUBE SCH (08:14)
[2022-04-03] MEDS: Finasteride 5 MG TABLET PO SCH (08:14)
[2022-04-03] MEDS: amLODIPine 5 MG TABLET GTUBE SCH (08:14)
[2022-04-03] MEDS: Methyl Salicylate/Menthol 85 APPL/85 GM TUBE TP SCH ×3 (08:15→20:49)
[2022-04-03] MEDS: traZODone 50 MG TABLET GTUBE SCH (20:47)
[2022-04-04] MEDS: Ipratropium/Albuterol Neb 3 ML IH SCH ×2 (04:23→07:38)
[2022-04-04] MEDS: *HR* Heparin 5,000 UNIT/ML VIAL SQ SCH (05:13)
[2022-04-04 07:39] VITALS: O2SAT 94
[2022-04-04] MEDS: Lactulose Oral Soln 20 GM/30 ML UDC GTUBE SCH (10:15)
[2022-04-04] MEDS: Carbidopa/Levodopa 25/100 TABLET GTUBE SCH ×2 (10:15→13:44)
[2022-04-04] MEDS: Famotidine 20 MG TABLET GTUBE SCH (10:15)
[2022-04-04] MEDS: Finasteride 5 MG TABLET PO SCH (10:15)
[2022-04-04] MEDS: lisinopriL 20 MG TABLET GTUBE SCH (10:15)
[2022-04-04] MEDS: Amantadine Oral Soln 50 MG/5 ML UDC GTUBE SCH (10:15)
[2022-04-04] MEDS: hydrALAZINE 25 MG TABLET GTUBE SCH (10:15)
[2022-04-04] MEDS: amLODIPine 5 MG TABLET GTUBE SCH (10:15)
[2022-04-04] MEDS: Valproic Acid Oral Soln 250 MG/5 ML UDC GTUBE SCH (10:15)
[2022-04-04] MEDS: Piperacillin/Tazobactam 3.375 GM in 0.9 % Sodium Chloride Mini Bag 100 ML IVPB SCH (10:16)
[2022-04-04] MEDS: Artificial Tears SOLN 15 ML BOTTLE BOTH EYES SCH (10:16)
[2022-04-04] MEDS: Methyl Salicylate/Menthol 85 APPL/85 GM TUBE TP SCH (10:16)
[2022-04-04] MEDS: Zinc Sulfate 220 MG CAPSULE GTUBE SCH (10:16)
[2022-04-04] MEDS: allopurinoL 300 MG TABLET GTUBE SCH (10:16)
[2022-04-04 10:50] VITALS: BP 131/68; PULSE 65; TEMP 98.3
[2022-04-04 13:13] LABS: Adenovirus Not Detected (Not Detect); Bordetella Pertussis Not Detected (Not Detect); Chlamydophila pneumoniae Not Detected (Not Detect); Coronavirus 229E Not Detected (Not Detect); Coronavirus HKU1 Not Detected (Not Detect); Coronavirus NL63 Not Detected (Not Detect); Coronavirus OC43 Not Detected (Not Detect); Human Metapneumovirus Not Detected (Not Detect); Human Rhinovirus/Enterovirus Not Detected (Not Detect); Influenza A Subtype 2009 H1 Not Detected (Not Detect); Influenza B Not Detected (Not Detect); Mycoplasma pneumoniae Not Detected (Not Detect); Parainfluenza Virus 1 Not Detected (Not Detect); Parainfluenza Virus 2 Not Detected (Not Detect); Parainfluenza Virus 3 Not Detected (Not Detect); Parainfluenza Virus 4 Not Detected (Not Detect); Respiratory Syncytial Virus Not Detected (Not Detect); SARS-CoV-2 Not Detected (Not Detect)
[2022-04-05] MEDS ORDERED: Ketoconazole Shampoo 120 ML BOTTLE TP SCH (09:00)
== END 2022-04-04 14:51 | DRG 194 ==
LOC: EMEROOARM 18:00 → 3ANU 18:00 → SUATTDRO 23:37 → 3ANU 04-02 00:32
PROVIDERS: ADMIT Family Medicine; ATTEND Internal Medicine